=== PATIENT | male | born 1950 | race Caucasian/White ===

== ENCOUNTER 2019-02-21 11:12 | Emergency (ER) | payer MEDICARE, OTHER ==
[~2019-02-21] VITALS: Ht 172.7 cm; Wt 70.5 kg
[2019-02-21 12:15] VITALS: Ht 172.7 cm; Wt 70.5 kg
[2019-02-21] MEDS ORDERED: PLAVIX75 MG PO (12:17)
[2019-02-21] MEDS ORDERED: ZOCOR40 MG PO (12:18)
[2019-02-21] MEDS ORDERED: TOPROL XL50 MG PO (12:18)
[2019-02-21 15:54] VITALS: BP 139/72
== END 2019-02-21 15:55 | disposition home or self-care (01) ==
LOC: D.ER 11:12
DX: S01.01XA Laceration without foreign body of scalp, initial encounter (principal); W22.8XXA Striking against or struck by other objects, initial encounter; Y93.89 Activity, other specified; Y92.89 Other specified places as the place of occurrence of the external cause